=== PATIENT | female | born 1980 | race Caucasian/White ===

== ENCOUNTER 2020-05-17 10:24 | Emergency (ER) | payer MEDICAID, SELFPAY ==
[2020-05-17 10:24] VITALS: BP 144/79; PULSE 77; RESP 18; TEMP 35.7; O2SAT 98; BMI 31.4
--- NOTE | 2020-05-17 10:34 | CT_ITS ---
STUDY: CT BRAIN WITHOUT CONTRAST REASON FOR EXAM: Female, 39 years old. Head injury, hematorrhea RADIATION DOSAGE (If Supplied By Facility): CTDIvol = ( 44.99 ) mGy, DLP = ( 745.49 ) mGycm TECHNIQUE: Transaxial CT imaging of the brain was performed without administration of intravenous contrast material. Individualized dose optimization techniques were used for this CT. COMPARISON: CT head 10/14/2012 FINDINGS: Normal soft tissue structures. Normal calvarium. Normal size ventricles and extra-axial spaces for the patient''s age. Normal white matter tracts of the cerebral hemispheres. Normal basal ganglia and thalami. Normal brainstem. Normal cerebellum. There is no intracranial hemorrhage. There are no findings of an acute ischemic infarction. Normal visualized paranasal sinuses. CT/Brain/Head without Contrast IMPRESSION: Normal unenhanced CT scan of the brain. Electronically Signed: Judie Lee MD at 11:18 EDT Tel , Service support ,
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
[2020-05-17 11:47] VITALS: BP 102/64; PULSE 57; RESP 18; O2SAT 100
== END 2020-05-17 11:52 | disposition home or self-care (01) ==
PROVIDERS: Emergency Provider Emergency Medicine
DX: H72.90 Unspecified perforation of tympanic membrane, unspecified ear (principal); S09.90XA Unspecified injury of head, initial encounter; S50.811A Abrasion of right forearm, initial encounter; Y04.2XXA Assault by strike against or bumped into by another person, initial encounter; Y92.9 Unspecified place or not applicable; Y99.9 Unspecified external cause status; F17.200 Nicotine dependence, unspecified, uncomplicated
CPT/HCPCS: 70450; 99282

== ENCOUNTER 2020-06-12 19:42 | Emergency (ER) | payer MEDICAID, SELFPAY ==
[2020-06-12 19:42] VITALS: BP 101/60; PULSE 61; RESP 16; TEMP 36.6; O2SAT 92; BMI 30.4
--- NOTE | 2020-06-12 19:52 | EKG12_ITS ---
Test Reason : DIZZY Blood Pressure : / mmHG Vent. Rate : 066 BPM Atrial Rate : 066 BPM P-R Int : 094 ms QRS Dur : 092 ms QT Int : 396 ms P-R-T Axes : -18 030 026 degrees QTc Int : 415 ms Sinus rhythm with sinus arrhythmia with short DC Low voltage QRS Borderline ECG Confirmed by REGINA FISCHER, VALERI ([id number]), brands editor KRUNAL DURAN ([id number]) on 06/14/2020 9:13:17 AM Referred By: CL Confirmed By:VALERI TAPIA MD
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
[2020-06-12] MEDS: 0.9% Normal Saline 1,000 ML 1000 ML IV (20:03)
[2020-06-12 20:11] LABS: Basophil# 0.05 X10^3/uL; Basophil% 0.8 % (0-1); Eosinophil# 0.27 X10^3/uL; Eosinophils% 4.1 % (0-5); Hematocrit 41.4 % (37-47); Hemoglobin 13.4 g/dL (12.0-15.0); Lymphocyte % 30.1 % (19-41); Mean Corp Hgb Conc 32.4 g/dL (32-36); Mean Corpuscular Hgb 29.2 pg (27.0-32.0); Mean Corpuscular Volume 90.2 fL (81-99); Mean Platelet Vol. 10.4 fl (6.2-12.0); Monocyte# 0.36 X10^3/uL; Monocyte% 5.4 % (0-10); NRBC Flagged by Analyzer 0 % (0-5); Neutrophil # 3.95 X10^3/uL (2.7-7.7); Neutrophil % 59.4 % (47-70); POSITIVE MORPHOLOGY YES; Platelet Count 213 K/mm3 (150-450); RBC Distribution Width CV 12.7 % (11.6-14.6); RBC Distribution Width SD 42.5 fl (35.1-43.9); Red Blood Count 4.59 M/mm3 (4.2-5.4); White Blood Count 6.6 K/mm3 (4.4-11.0)
[2020-06-12 20:17] LABS: Bacteria 0 SEEN /hpf (None Seen); Color, Urine Yellow (Yellow); Glucose, Dipstick Normal (Normal); Ketone-Dipstick 5 mg/dl (Negative); Leukocyte Esterase-Dipstick 25 /ul (Negative); Mucous, Urine 0 SEEN /hpf (<or=2+); Nitrite-Dipstick Negative (Negative); Occult Blood-Urine Negative /ul (Negative); Protein-Dipstick Negative (Negative); Red Blood Cells-Urine 0 SEEN /hpf (0-5); Squamous Epithelial Cells - UA 0 SEEN /hpf (5-10); Urine Bilirubin Dipstick Negative (Negative); Urine Clarity Clear (Clear); Urine Urobilinogen 1 mg/dl (Normal); Urine pH 6.5 (5.0 - 8.0); White Blood Cells 0 SEEN /hpf (0-5)
[2020-06-12 20:20] LABS: Internal QC Validated? YES +Cl - CLEAR BKGD; Pregnancy, Urine Negative Negative
[2020-06-12 20:20] LABS: Differential Indicated SCAN CRITERIA MET
[2020-06-12 20:33] LABS: ALB/GLOB Ratio 1.1 RATIO (0.9-2.4); AST(SGOT) 20 U/L (15-37); Alanine Aminotransfer ALT/SGPT 35 U/L (13-56); Albumin, Serum 3.3 g/dL (3.2-5.0); Alkaline Phosphatase 66 U/L (45-117); Anion Gap 4 (5-15); BUN 15 mg/dL (7-18); BUN/Creat Ratio 14.7 RATIO (10-20); Calcium,Total 8.4 mg/dL (8.5-10.1); Chloride 110 mmol/L (98-107); Creatinine, Serum 1.02 mg/dL (0.55-1.02); EST Glomerular Filtration Rate 64 mL/min (>60); Est Glom Filt Rate - Afr Amer 77 mL/min (>60); Estimated Creatinine Clearance 69.32 ml/min; Glucose 74 mg/dL (74-106); Potassium 3.6 mmol/L (3.5-5.1); Protein, Total 6.3 g/dL (6.4-8.2); Sodium Level 142 mmol/L (136-145)
[2020-06-12 21:19] VITALS: BP 109/63; PULSE 77; RESP 12; O2SAT 100
== END 2020-06-12 21:21 | disposition home or self-care (01) ==
PROVIDERS: Emergency Provider Emergency Medicine
DX: R42 Dizziness and giddiness (principal); F17.210 Nicotine dependence, cigarettes, uncomplicated; F15.90 Other stimulant use, unspecified, uncomplicated
CPT/HCPCS: 80053; 81001; 81025; 85025; 93005; 96360; 99284; J7030; A4216

== ENCOUNTER 2020-06-25 05:33 | Emergency (ER) | payer MEDICAID, SELFPAY ==
[2020-06-25 05:34] VITALS: BP 126/81; PULSE 102; RESP 6; TEMP 35.7; O2SAT 98; BMI 27.9
[2020-06-25] MEDS: Naloxone 2 MG/2 ML Syringe IV (05:52)
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
[2020-06-25 06:01] LABS: Absolute Neutrophil Count 5.7 X10^3/uL (2.0-7.7); Basophil# 0.08 X10^3/uL; Basophil% 0.8 % (0-1); Lymphocyte % 31.2 % (19-41); Mean Corp Hgb Conc 32.5 g/dL (32-36); Mean Corpuscular Hgb 28.9 pg (27.0-32.0); Mean Corpuscular Volume 88.9 fL (81-99); Monocyte# 0.73 X10^3/uL; Monocyte% 7.3 % (0-10); NRBC Flagged by Analyzer 0 % (0-5); Neutrophil % 57.4 % (47-70); Platelet Count 291 K/mm3 (150-450); RBC Distribution Width CV 12.7 % (11.6-14.6); RBC Distribution Width SD 41.8 fl (35.1-43.9); White Blood Count 9.9 K/mm3 (4.4-11.0)
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
[2020-06-25 07:04] VITALS: BP 119/76; PULSE 106; RESP 20; O2SAT 99
[2020-06-25 07:52] LABS: AST(SGOT) 28 U/L (15-37); Alanine Aminotransfer ALT/SGPT 39 U/L (13-56); Albumin, Serum 3.6 g/dL (3.2-5.0); Alkaline Phosphatase 66 U/L (45-117); Anion Gap 5 (5-15); BUN 23 mg/dL (7-18); BUN/Creat Ratio 26.1 RATIO (10-20); Calcium,Total 8.7 mg/dL (8.5-10.1); Chloride 107 mmol/L (98-107); Creatinine, Serum 0.88 mg/dL (0.55-1.02); EST Glomerular Filtration Rate 76 mL/min (>60); Est Glom Filt Rate - Afr Amer 92 mL/min (>60); Estimated Creatinine Clearance 83.47 ml/min; Globulin 3.6 g/dL (2.2-4.2); Glucose 111 mg/dL (74-106); Potassium 3.8 mmol/L (3.5-5.1); Protein, Total 7.2 g/dL (6.4-8.2); Sodium Level 136 mmol/L (136-145)
[2020-06-25 08:19] VITALS: BP 125/86; PULSE 99; RESP 16; O2SAT 98
== END 2020-06-25 08:19 | disposition home or self-care (01) ==
PROVIDERS: Emergency Provider Emergency Medicine
DX: F11.10 Opioid abuse, uncomplicated (principal); F17.210 Nicotine dependence, cigarettes, uncomplicated
CPT/HCPCS: 36415; 80053; 85025; 96374; 99285; A4216

== ENCOUNTER 2020-07-08 01:09 | Emergency (ER) | payer MEDICAID, SELFPAY ==
[2020-07-08 01:10] VITALS: BP 108/69; PULSE 77; RESP 16; TEMP 36.1; O2SAT 100; BMI 31.4
[2020-07-08 01:13] VITALS: BP 108/69; PULSE 77; RESP 16; TEMP 36.1; O2SAT 100
--- NOTE | 2020-07-08 01:22 | EKG12_ITS ---
Test Reason : EDEMA Blood Pressure : / mmHG Vent. Rate : 065 BPM Atrial Rate : 065 BPM P-R Int : 104 ms QRS Dur : 092 ms QT Int : 390 ms P-R-T Axes : 026 051 023 degrees QTc Int : 405 ms Sinus rhythm with short ME Otherwise normal ECG Confirmed by JUAN CARLOS FISCHER, JULIANE ([id number]), multimedia editor KRUNAL DURAN ([id number]) on 07/10/2020 9:31:28 AM Referred By: GLENNY Confirmed By:JULIANE RANGEL MD
--- NOTE | 2020-07-08 01:22 | RAD_ITS ---
STUDY: X-RAY CHEST REASON FOR EXAM: Female, 39 years old. chest pain TECHNIQUE: Single AP portable view of the chest. COMPARISON: None. FINDINGS: Fullness of markings at the right lung base most likely representing confluence of vessels. Otherwise no lungs are clear and expanded. There is no demonstrated pleural abnormality. Normal size heart. Normal mediastinum and devonte. Normal visualized pulmonary arteries. Normal visualized aortic arch and descending thoracic aorta. Normal visualized thoracic spine. Normal visualized ribs, clavicles, and shoulders. There is no demonstrated abnormality of the visualized soft tissue structures of the upper abdomen. RAD/Chest 1 View (Portable) IMPRESSION: No acute cardiopulmonary disease. Electronically Signed: Mable Li MD at 2:41 EDT , Service support ,
--- NOTE | 2020-07-08 01:22 | CT_ITS ---
STUDY: CTA CHEST REASON FOR EXAM: Female, 39 years old. shortness of breath RADIATION DOSAGE (If Supplied By Facility): CTDIvol = ( 14.15 ) mGy, DLP = ( 366.05 ) mGycm TECHNIQUE: The examination was performed with the intravenous administration of IV 100mL [id number]-370. Post-processing of the angiographic images was performed, with multiplanar reformation and 3D reconstruction. Individualized dose optimization techniques were used for this CT. COMPARISON: None. FINDINGS: Normal enhancement of the main pulmonary artery and right and left pulmonary arteries. Normal enhancement of the bilateral peripheral pulmonary arteries. There is no demonstrated pulmonary embolism. Normal thoracic aorta and visualized great vessels. There is no demonstrated aortic dissection. Normal heart and pericardium. Normal mediastinum. Normal hilar regions. Normal visualized trachea and bronchi. The lungs are well expanded. Mild posterior dependent atelectasis otherwise normal pulmonary parenchyma. Normal pleura. Normal chest wall structures. Normal osseous structures. Normal visualized upper abdomen. CT/CTA Chest W/WO Contrast IMPRESSION: Negative CTA chest examination, without a demonstrated pulmonary embolism or arterial dissection. Mild posterior dependent atelectasis otherwise no acute cardiopulmonary disease. Electronically Signed: Malbe Li MD at 2:43 EDT , Service support ,
--- NOTE | 2020-07-08 01:24 | EDS_ITS ---
HPI History of Present Illness Chief Complaint: Edema Narrative Narrative: 39-year-old female presenting with bilateral lower extremity edema. She states she has no history of this. She states is been worsening over the last couple of days. She has been trying to elevate her legs and she continues to have swelling. She does have some mild erythema on her right anterior leg. She has not had fever, chills, nausea, vomiting. She does admit to being short of breath at times and has to sit down and rest. This is also a new issue. She denies chest pain as an associated symptom but she does admit to lightheadedness. Patient has no history of DVT/PE. She has no cardiac history. Patient states that she does have a history of hep C but has not been treated for this. She said it is not active. [facility] Medical History Substance abuse Home Medications apixaban [Eliquis DVT-PE Treat 30D Start] 5 mg PO BID 30 Days #74 tab 07/08/20 [Rx Last Taken Unknown] Allergy/AdvReac Type Severity Reaction Status Date / Time pseudoephedrine AdvReac Other Verified 07/08/20 01:13 [From Sudafed] Social History Smoking Status: Current every day smoker tobacco type: cigarettes ROS ROS ED Constitutional Constitutional ED: Denies chills, fever(s) or sweats Eyes Eyes: Denies blurry vision or change in vision ENT ENT ED: Denies ear pain, rhinorrhea or sore throat Cardiovascular Cardiovascular: Reports other Details: Lightheadedness. ; Denies chest pain, palpitations or racing heartbeat Respiratory/Chest Respiratory/Chest: Reports dyspnea; Denies cough or sputum Gastrointestinal Gastrointestinal: Denies abdominal pain, constipation, diarrhea or vomiting Genitourinary Genitourinary ED: Denies dysuria, hematuria or urinary frequency Musculoskeletal Musculoskeletal: Denies arthralgias, myalgias or neck pain Integumentary Reports other Details: Bilateral lower extremity edema ; Denies abscess, Abrasions or rash Neurologic Neurologic: Denies headache(s), paresthesias or weakness Psychiatric Psychiatric: Denies anxiety, depression, suicidal ideation or suicidal thoughts Endocrine Endocrinology: Denies polydipsia or polyuria EXAM Physical Exam Const Vital Signs: 07/08/20 01:10 07/08/20 01:13 07/08/20 02:23 Temperature 97 F L 97 F L Temperature Source Temporal Temporal Pulse Rate 77 77 Respiratory Rate 16 16 Blood Pressure 108/69 108/69 Blood Pressure Mean 82 82 Pulse Ox 100 100 96 Oxygen Delivery Method Room Air 07/08/20 03:16 07/08/20 04:04 Temperature 97 F L Temperature Source Temporal Pulse Rate 72 81 Respiratory Rate 16 18 Blood Pressure 101/69 100/82 H Blood Pressure Mean 79 88 Pulse Ox 99 99 Oxygen Delivery Method Room Air Positive well nourished General Appearance ED: NAD; Negative for pallor HEENT Reports normocephalic, head/scalp atraumatic and moist mucous membranes Negative for trauma Eyes PERRL and EOMs intact bilaterally Chest Wall inspection of chest normal and palpation of chest normal Resp normal respiratory effort and clear to auscultation bilaterally Auscultation: Negative for rales, rhonchi or wheezes Cardio regular rate and regular rhythm GI normal to inspection, nondistended, normoactive bowel sounds and non-distended Auscultation: normoactive bowel sounds Palpation: soft Narrative: Deferred Back/Spine no CVA tenderness General Back: Negative for CVA tenderness Cervical Spine: Negative for cervical spine tenderness Extremity General Extremety ED: Yes edema and tenderness General Extremity: edema Neuro oriented x3 and CN's II-XII intact bilaterally Sensorium / Orientation: alert Motor Exam: strength 5/5 throughout Psych mental status grossly normal Attitude: No agitated Skin no rashes or lesions noted and no wounds General Skin Exam: Negative for jaundice or pallor MDM MDM MDM Narrative Medical decision making narrative: Patient presenting with leg swelling, shortness of breath, lightheadedness. Patient had EKG performed which showed a sinus rhythm at 65 bpm without signs of ischemic change as interpreted by myself. Chest x-ray is interpreted by myself shows no acute cardiopulmonary process. Radiology does agree. Patient's lab work-up was unremarkable. BNP is negative. Troponin is negative. She did have a CTA of the chest performed which shows a right lower lobe PE. Given this patient will be started on Eliquis. First dose was given in the ED. Given that she has bilateral leg swelling she wishes to have ultrasounds performed of her legs. This was ordered for her prior to discharge. She will follow-up outpatient for this. Patient given return precautions. She is stable for discharge at this time. Impression: 1. Right lower lobe PE 2. Dyspnea 3. Bilateral leg swelling Lab Data Attestation: I reviewed the patient's lab results. Labs: Laboratory Results - last 24 hr 07/08/20 07/08/20 07/08/20 01:45 01:45 01:45 WBC 6.4 RBC 4.24 Hgb 12.2 Hct 38.8 MCV 91.5 MCH 28.8 MCHC 31.4 L RDW Std Deviation 42.8 RDW Coeff of Uyen 12.8 Plt Count 214 MPV 9.9 Immature Gran % (Auto) 0.300 Neut % (Auto) 63.5 Lymph % (Auto) 25.3 [place] % (Auto) 7.6 Eos % (Auto) 2.8 Baso % (Auto) 0.5 Absolute Neuts (auto) 4.1 Absolute Lymphs (auto) 1.63 Nucleated RBC % 0 Sodium 141 Potassium 4.0 Chloride 108 H Carbon Dioxide 30.0 Anion Gap 3 L BUN 16 Creatinine 0.79 Estim Creat Clear Calc 89.50 Est GFR (MDRD) Af Amer 104 Est GFR (MDRD) Non-Af 86 BUN/Creatinine Ratio 20.3 H Glucose 84 Calcium 8.5 Total Bilirubin 0.30 Direct Bilirubin 0.09 AST 34 ALT 44 Alkaline Phosphatase 83 Troponin I < 0.015 B-Natriuretic Peptide 82.9 Total Protein 6.3 L Albumin 3.1 L Globulin 3.2 Radiography Diagnostic Testing: Radiology Impression Chest CTA 07/08/20 01:22 IMPRESSION: Negative CTA chest examination, without a demonstrated pulmonary embolism or arterial dissection. Mild posterior dependent atelectasis otherwise no acute cardiopulmonary disease. Electronically Signed: Mable Li MD at 2:43 EDT , Service support , ADDENDUM: 07/08/20 0347 ADDENDUM: 07/08/20 0353 Chest X-Ray 07/08/20 01:22 IMPRESSION: No acute cardiopulmonary disease. Electronically Signed: Mable Li MD at 2:41 EDT , Service support , Discharge Plan Triage Chief Complaint: Edema ED Provider: Wang Casey Dx/Rx/DC Orders Instructions: Pulmonary Embolism Prescriptions: New Eliquis DVT-PE Treat 30D Start 5 mg (74 tabs) tablets,dose pack 5 mg PO BID 30 Days Qty: 74 RF: 0 Primary Care Provider: Care Physician,No Primary Referrals: Savannah Mathews MD [STAFF PHYSICIAN] - As soon as possible Care Physician,No Primary [Primary Care Provider] - Disposition Disposition: Home, self care
[2020-07-08 01:54] LABS: Absolute Lymphocyte Count 1.63 X10^3/uL (0.83-4.51); Absolute Neutrophil Count 4.1 X10^3/uL (2.0-7.7); Basophil# 0.03 X10^3/uL; Basophil% 0.5 % (0-1); Eosinophil# 0.18 X10^3/uL; Eosinophils% 2.8 % (0-5); Hematocrit 38.8 % (37-47); Hemoglobin 12.2 g/dL (12.0-15.0); Lymphocyte # 1.63 X10^3/ul (0.83-4.51); Lymphocyte % 25.3 % (19-41); Mean Corp Hgb Conc 31.4 g/dL (32-36); Mean Corpuscular Hgb 28.8 pg (27.0-32.0); Mean Corpuscular Volume 91.5 fL (81-99); Mean Platelet Vol. 9.9 fl (6.2-12.0); Monocyte# 0.49 X10^3/uL; Monocyte% 7.6 % (0-10); NRBC Flagged by Analyzer 0 % (0-5); Neutrophil # 4.09 X10^3/uL (2.7-7.7); Neutrophil % 63.5 % (47-70); Platelet Count 214 K/mm3 (150-450); RBC Distribution Width CV 12.8 % (11.6-14.6); RBC Distribution Width SD 42.8 fl (35.1-43.9); Red Blood Count 4.24 M/mm3 (4.2-5.4); White Blood Count 6.4 K/mm3 (4.4-11.0)
[2020-07-08 02:11] LABS: AST(SGOT) 34 U/L (15-37); Alanine Aminotransfer ALT/SGPT 44 U/L (13-56); Albumin, Serum 3.1 g/dL (3.2-5.0); Alkaline Phosphatase 83 U/L (45-117); Anion Gap 3 (5-15); BUN 16 mg/dL (7-18); BUN/Creat Ratio 20.3 RATIO (10-20); Bilirubin, Direct 0.09 mg/dL (0.00-0.30); Calcium,Total 8.5 mg/dL (8.5-10.1); Chloride 108 mmol/L (98-107); Creatinine, Serum 0.79 mg/dL (0.55-1.02); EST Glomerular Filtration Rate 86 mL/min (>60); Est Glom Filt Rate - Afr Amer 104 mL/min (>60); Globulin 3.2 g/dL (2.2-4.2); Glucose 84 mg/dL (74-106); Protein, Total 6.3 g/dL (6.4-8.2); Sodium Level 141 mmol/L (136-145)
[2020-07-08 02:14] LABS: BNP,B-Type NATRIURETIC PEPTIDE 82.9 pg/mL (0-100)
[2020-07-08 02:23] VITALS: O2SAT 96
[2020-07-08 03:16] VITALS: BP 101/69; PULSE 72; RESP 16; O2SAT 99
[2020-07-08] MEDS: APIXABAN 5 MG TABLET 10 MG PO (04:03)
[2020-07-08 04:04] VITALS: BP 100/82; PULSE 81; RESP 18; TEMP 36.1; O2SAT 99
[2020-07-08 04:12] VITALS: BP 100/82; PULSE 81; RESP 16; O2SAT 99
== END 2020-07-08 04:12 | disposition home or self-care (01) ==
PROVIDERS: Emergency Provider Student in an Organized Health Care Education/Training Program
DX: I26.99 Other pulmonary embolism without acute cor pulmonale (principal); R60.9 Edema, unspecified; M79.89 Other specified soft tissue disorders; R06.00 Dyspnea, unspecified; F17.210 Nicotine dependence, cigarettes, uncomplicated; Z79.01 Long term (current) use of anticoagulants
CPT/HCPCS: 71045; 71275; 80048; 80076; 83880; 84484; 85025; 93005; 99285; Q9967

== ENCOUNTER → 2020-07-12 11:06 | Outpatient (CLI) | payer MEDICAID, SELFPAY ==
[2020-07-08 01:10] VITALS: BMI 31.4
[2020-07-11 07:59] VITALS: BMI 31.4
--- NOTE | 2020-07-12 11:08 | VDLE_ITS ---
Reason For Study: Swelling RIGHT LEFT GSV is normal. GSV is normal. CFV is compressible, spontaneous, phasic, CFV is compressible, spontaneous, phasic, competent and demonstrates normal competent, and demonstrates normal augmentation. augmentation. FV is compressible, spontaneous, phasic, FV is compressible, spontaneous, phasic, competent and demonstrates normal competent and demonstrates normal augmentation. augmentation. POP V is compressible, spontaneous, phasic, POP V is compressible, spontaneous, phasic, competent and demonstrates normal competent and demonstrates normal augmentation. augmentation. T/P Trunk is compressible. T/P Trunk is compressible. PTV is compressible. PTV is compressible. RT PerV is compressible. LT PerV is compressible. Procedure This is a venous duplex using B-mode, color flow and spectral Doppler. Exam performed in department. VL/Venous Duplex US - [place] Extrem Interpretation Summary Deep veins of the lower extremities are bilaterally patent and compressible seg mentally. There is no evidence of deep vein thrombosis on either side. Valvular competence appears in tact within the proximal deep venous systems bilaterally. The great saphenous veins appear bila terally patent and compressible segmentally. Ordering Physician: Wang Casey Performed By: Lola Martin RVT
== END ==
PROVIDERS: Referring Provider Student in an Organized Health Care Education/Training Program; Visit Provider Student in an Organized Health Care Education/Training Program
DX: M79.89 Other specified soft tissue disorders (principal)
CPT/HCPCS: 93970

== ENCOUNTER → 2020-07-30 15:23 | Outpatient (CLI) | payer MEDICAID, SELFPAY ==
[2020-07-18 08:45] VITALS: BMI 42.5
[2020-07-26 14:51] VITALS: BMI 29.3
--- NOTE | 2020-07-30 15:25 | CT_ITS ---
INDICATION: Bilateral Lower extremity edema. Thrombosis EXAMINATION: CT Abdomen And Pelvis W/ Contrast Injection TECHNIQUE: Helically acquired images were obtained of the abdomen and pelvis after IV contrast. A radiation dose optimization technique was used for this scan. IV Contrast dosage and agent: IV 100mL Isovue-300 Oral contrast: None. COMPARISON: 11/29/2012. FINDINGS: Visualized lung bases: Unremarkable Liver: Diffusely hypodense consistent with fatty liver. Gallbladder: Unremarkable Spleen: Unremarkable Pancreas: Unremarkable Adrenal Glands: Unremarkable Kidneys: Unremarkable Vasculature: Unremarkable GI Tract: Unremarkable Lymphadenopathy: Prominent bilateral inguinal lymph nodes. Peritoneum: No ascites. Bladder: Unremarkable Reproductive organs: Unremarkable Bones/Soft tissues: No suspicious osseous or soft tissue lesions CT/Abdomen/Pelvis WITH Contrast IMPRESSION: No acute abnormalities in the abdomen or pelvis. Fatty liver. Electronically Signed: Julien Che MD at 20:44 EDT Tel , Service support ,
== END ==
PROVIDERS: PCP Internal Medicine; Referring Provider Internal Medicine; Visit Provider Internal Medicine
DX: I82.90 Acute embolism and thrombosis of unspecified vein (principal); R60.0 Localized edema
CPT/HCPCS: 74177; Q9967

== ENCOUNTER 2020-08-02 17:38 | Emergency (ER) | payer MEDICAID, SELFPAY ==
[2020-07-26 14:51] VITALS: BMI 29.3
[2020-08-02 17:39] VITALS: BP 122/78; PULSE 72; PULSE 83; RESP 16; TEMP 36.2; O2SAT 94; O2SAT 96; BMI 29.7
--- NOTE | 2020-08-02 17:58 | EX.ED.DYSGE1 ---
HPI History of Present Illness Chief Complaint: Complaint Informant: patient Onset/Context/Timing Onset: Days Context: Gradual Onset Timing: Continuous Quality: Tingling, blood, clots Location: Lower abdomen Worsened by: Urination Relieved by: Nothing Narrative Narrative: Patient presents with hematuria and urinary frequency that has been getting worse over the past couple days. Patient states she has some tingling in her lower abdomen. Patient states she is urinating some blood and clots. Patient states she is on Eliquis for pulmonary embolism. Patient states nothing makes it better and nothing makes it worse. Patient denies any fevers or chills. Patient denies any neck or back pain. Patient denies any nausea or vomiting. [facility] Medical History Alcohol abuse affecting Back problem Bilateral lower extremity edema Drug abuse Hearing problem Hepatitis C Pulmonary embolism Substance abuse Thrombosis Vision problem Home Medications apixaban [Eliquis DVT-PE Treat 30D Start] 5 mg PO BID 30 Days #74 tab 07/08/20 [Rx Last Taken Unknown] cephalexin 500 mg PO Q6 #20 capsule 08/02/20 [Rx Last Taken Unknown] Allergy/AdvReac Type Severity Reaction Status Date / Time pseudoephedrine Allergy Severe Other Verified 07/26/20 14:56 [From Sudafed] Family History (Updated 07/18/20 @ 08:55 by Erendira Islas) Other Hypertension Surgical History History of S/P removal of left ovary Social History Smoking Status: Current every day smoker tobacco type: cigarettes second hand exposure: Yes alcohol intake: former substance use type: former substance user, opiates, methamphetamine and other details: previous caffeine: Yes what type of physical activity do you participate in: walking frequency: 3-4 times per week marvin/rastafarian: Catholic seatbelt use: sometimes do you feel safe at home: Yes ROS ROS ED Constitutional Constitutional ED: Denies chills or fever(s) Eyes Eyes: Denies blurry vision or change in vision ENT ENT ED: Reports rhinorrhea; Denies sore throat Cardiovascular Cardiovascular: Denies chest pain or palpitations Respiratory/Chest Respiratory/Chest: Denies cough or dyspnea Gastrointestinal Gastrointestinal: Reports abdominal pain; Denies nausea or vomiting Genitourinary Genitourinary ED: Denies dysuria or hematuria Musculoskeletal Musculoskeletal: Denies back pain or neck pain Integumentary Reports rash; Denies abscess Neurologic Neurologic: Reports paresthesias RUE and LUE; Denies headache(s) or weakness Allergic/Immunologic Allergic/Immunologic ED: Denies mouth swelling or urticaria EXAM Physical Exam Const Vital Signs: 08/02/20 17:39 Temperature 97.2 F L Temperature Source Temporal Pulse Rate 83 Respiratory Rate 16 Blood Pressure 122/78 H Blood Pressure Mean 92 Pulse Ox 94 Oxygen Delivery Method Room Air Positive well nourished and well developed General Appearance ED: well developed HEENT Reports moist mucous membranes Neck supple and no JVD Resp normal respiratory effort and clear to auscultation bilaterally Cardio regular rate, regular rhythm and no murmurs GI normal to inspection, nondistended, normoactive bowel sounds Palpation: soft and tender suprapubic; Negative for guarding or rebound tenderness present Extremity normal to inspection General Extremety ED: Negative for edema or tenderness General Extremity: Negative for edema Neuro oriented x3, CN's II-XII intact bilaterally and no sensory deficits noted Sensorium / Orientation: alert Motor Exam: strength 5/5 throughout Psych mental status grossly normal Skin no rashes or lesions noted MDM MDM MDM Narrative Medical decision making narrative: CBC shows a slight leukocytosis of 11.2. Comprehensive metabolic profile was within normal limits. Urinalysis shows leukocyte esterase of 500 with positive nitrites and greater than 100 white blood cells. There is also occult blood of 250 with 50-100 red blood cells. There is 2+ bacteria. Patient was given a dose of Rocephin here. Patient was given a prescription for Keflex. Patient was instructed to follow-up with her primary care physician in 5 to 7 days. Patient understood and was agreeable with the plan. All questions were answered. Lab Data Attestation: I reviewed the patient's lab results. Labs: Laboratory Results - last 24 hr 08/02/20 08/02/20 08/02/20 17:50 18:10 18:10 WBC 11.2 H RBC 4.32 Hgb 12.5 Hct 38.5 MCV 89.1 MCH 28.9 MCHC 32.5 RDW Std Deviation 41.9 RDW Coeff of Uyen 12.7 Plt Count 259 MPV 10.4 Immature Gran % (Auto) 0.400 Neut % (Auto) 78.4 H Lymph % (Auto) 12.1 L [place] % (Auto) 7.5 Eos % (Auto) 1.2 Baso % (Auto) 0.4 Absolute Neuts (auto) 8.8 H Absolute Lymphs (auto) 1.35 Nucleated RBC % 0 Sodium 140 Potassium 3.7 Chloride 106 Carbon Dioxide 30.0 Anion Gap 4 L BUN 13 Creatinine 0.77 Estim Creat Clear Calc 91.83 Est GFR (MDRD) Af Amer 106 Est GFR (MDRD) Non-Af 88 BUN/Creatinine Ratio 16.8 Glucose 86 Calcium 9.1 Total Bilirubin 0.60 AST 41 H ALT 33 Alkaline Phosphatase 79 Total Protein 7.2 Albumin 3.6 Globulin 3.6 Albumin/Globulin Ratio 1.0 Urine Color Yellow Urine Clarity Cloudy Urine pH 7.0 Ur Specific [place] 1.015 Urine Protein 500 H Urine Glucose (UA) Normal Urine Ketones 5 H Urine Occult Blood 250 H Urine Nitrite Positive H Urine Bilirubin Negative Urine Urobilinogen 4 H Ur Leukocyte Esterase 500 H Urine RBC 50-100 SEEN Urine WBC >100 SEEN Ur Squamous Epith Cells 5-10 SEEN Amorphous Sediment 1+ PHOS Urine Bacteria 2+ Urine Mucus 0 SEEN Discharge Plan Triage Chief Complaint: Complaint ED Provider: Warren Valdez Dx/Rx/DC Orders Clinical Impression: Urinary tract infection Instructions: ED Bladder Infection, Female (Adult) Prescriptions: New cephalexin [cephalexin] 500 MG capsule 500 mg PO Q6 Qty: 20 RF: 0 No Action Eliquis DVT-PE Treat 30D Start 5 mg (74 tabs) tablets,dose pack 5 mg PO BID 30 Days Qty: 74 RF: 0 Primary Care Provider: Gregorio Mathews Referrals: Gregorio Mathews MD [Primary Care Provider] - 3-5 Days Disposition Disposition: Home, self care
[2020-08-02 18:02] LABS: Mucous, Urine 0 SEEN /hpf (<or=2+)
[2020-08-02 18:05] LABS: Color, Urine Yellow (Yellow); Glucose, Dipstick Normal (Normal); Ketone-Dipstick 5 mg/dl (Negative); Leukocyte Esterase-Dipstick 500 /ul (Negative); Nitrite-Dipstick Positive (Negative); Occult Blood-Urine 250 /ul (Negative); Protein-Dipstick 500 mg/dl (Negative); Specific Gravity, Urine 1.015 (1.002-1.030); Urine Bilirubin Dipstick Negative (Negative); Urine Clarity Cloudy (Clear); Urine Urobilinogen 4 mg/dl (Normal)
[2020-08-02 18:13] LABS: White Blood Cells >100 SEEN /hpf (0-5)
[2020-08-02 18:14] LABS: Amorphous Sediment 1+ PHOS; Bacteria 2+ /hpf (None Seen); Red Blood Cells-Urine 50-100 SEEN /hpf (0-5); Squamous Epithelial Cells - UA 5-10 SEEN /hpf (5-10)
[2020-08-02 18:31] LABS: Absolute Lymphocyte Count 1.35 X10^3/uL (0.83-4.51); Absolute Neutrophil Count 8.8 X10^3/uL (2.0-7.7); Basophil# 0.04 X10^3/uL; Basophil% 0.4 % (0-1); Eosinophil# 0.13 X10^3/uL; Eosinophils% 1.2 % (0-5); Hematocrit 38.5 % (37-47); Hemoglobin 12.5 g/dL (12.0-15.0); Lymphocyte # 1.35 X10^3/ul (0.83-4.51); Lymphocyte % 12.1 % (19-41); Mean Corp Hgb Conc 32.5 g/dL (32-36); Mean Corpuscular Hgb 28.9 pg (27.0-32.0); Mean Corpuscular Volume 89.1 fL (81-99); Mean Platelet Vol. 10.4 fl (6.2-12.0); Monocyte# 0.84 X10^3/uL; Monocyte% 7.5 % (0-10); NRBC Flagged by Analyzer 0 % (0-5); Neutrophil # 8.79 X10^3/uL (2.7-7.7); Neutrophil % 78.4 % (47-70); Platelet Count 259 K/mm3 (150-450); RBC Distribution Width CV 12.7 % (11.6-14.6); RBC Distribution Width SD 41.9 fl (35.1-43.9); Red Blood Count 4.32 M/mm3 (4.2-5.4); White Blood Count 11.2 K/mm3 (4.4-11.0)
[2020-08-02 18:58] LABS: AST(SGOT) 41 U/L (15-37); Alanine Aminotransfer ALT/SGPT 33 U/L (13-56); Albumin, Serum 3.6 g/dL (3.2-5.0); Alkaline Phosphatase 79 U/L (45-117); Anion Gap 4 (5-15); BUN 13 mg/dL (7-18); BUN/Creat Ratio 16.8 RATIO (10-20); Calcium,Total 9.1 mg/dL (8.5-10.1); Chloride 106 mmol/L (98-107); Creatinine, Serum 0.77 mg/dL (0.55-1.02); EST Glomerular Filtration Rate 88 mL/min (>60); Est Glom Filt Rate - Afr Amer 106 mL/min (>60); Estimated Creatinine Clearance 91.83 ml/min; Globulin 3.6 g/dL (2.2-4.2); Glucose 86 mg/dL (74-106); Potassium 3.7 mmol/L (3.5-5.1); Protein, Total 7.2 g/dL (6.4-8.2); Sodium Level 140 mmol/L (136-145)
[2020-08-02] MEDS: Ceftriaxone 1 GM/50 ML BAG IV (19:23)
[2020-08-02 20:00] VITALS: RESP 14
== END 2020-08-02 20:02 | disposition home or self-care (01) ==
PROVIDERS: Emergency Provider Emergency Medicine; PCP Internal Medicine
DX: N39.0 Urinary tract infection, site not specified (principal); F17.210 Nicotine dependence, cigarettes, uncomplicated; Z79.01 Long term (current) use of anticoagulants
CPT/HCPCS: 80053; 81001; 85025; 96365; 99284; J7050

== ENCOUNTER 2020-12-21 02:51 | Observation (INO) | payer MEDICAID, SELFPAY ==
[2020-12-21] VITALS (9 sets, daily range): BP systolic 102–130; BP diastolic 52–83; PULSE 60–88; RESP 16; TEMP 36.1–36.7; O2SAT 95–100; BMI 31.4; BMI 31.3
--- NOTE | 2020-12-21 03:29 | EDS_ITS ---
HPI History of Present Illness Chief Complaint: Substance Abuse Informant: patient Onset/Context/Timing Onset: Today Context: Gradual Onset Timing: Continuous Worsened by: Nothing Relieved by: Nothing Associated Symptoms Associated Symptoms: Positive for no; Negative for vomiting*, diarrhea*, fever*, rash*, seizure, tremor, palpatations, change in mental status, suicidal ideation and homicidal ideation Narrative Narrative: Patient presents requesting detox from heroin. Patient states that she normally snorts heroin. Patient states she uses approximately half a gram per day. Patient states she also has a history of using methamphetamines but has not used any in the last 4 days. Patient also complains of an abscess in her right axilla. Patient also admits to some swelling of her lower extremities. Patient denies any shortness of breath. Patient admits to subjective fever. Patient denies any nausea or vomiting. Patient denies any seizures or palpitations. Patient denies any suicidal or homicidal ideation. [facility] Medical History Alcohol abuse affecting Back problem Bilateral lower extremity edema Drug abuse Hearing problem Hepatitis C Pulmonary embolism Substance abuse Thrombosis Vision problem Home Medications NK 12/21/20 [History Last Taken Unknown] Allergy/AdvReac Type Severity Reaction Status Date / Time pseudoephedrine Allergy Severe Shortness Verified 12/21/20 02:58 [From Cookie] of breath Family History (Updated 07/18/20 @ 08:55 by Erendira Islas) Other Hypertension Surgical History History of S/P removal of left ovary Social History Smoking Status: Current every day smoker tobacco type: cigarettes second hand exposure: Yes alcohol intake: former substance use type: former substance user, opiates, methamphetamine and other details: previous caffeine: Yes what type of physical activity do you participate in: walking frequency: 3-4 times per week marvin/gnosticist: Rastafarian seatbelt use: sometimes do you feel safe at home: Yes ROS ROS ED Constitutional Constitutional ED: Reports fever(s) and subjective; Denies chills Eyes Eyes: Denies blurry vision or change in vision ENT ENT ED: Denies rhinorrhea or sore throat Cardiovascular Cardiovascular: Denies chest pain or palpitations Respiratory/Chest Respiratory/Chest: Reports dyspnea; Denies cough Gastrointestinal Gastrointestinal: Denies nausea or vomiting Genitourinary Genitourinary ED: Denies dysuria or hematuria Musculoskeletal Musculoskeletal: Reports myalgias; Denies neck pain Integumentary Reports abscess; Denies rash Neurologic Neurologic: Denies headache(s) or weakness Allergic/Immunologic Allergic/Immunologic ED: Denies mouth swelling or urticaria EXAM Physical Exam Const Vital Signs: 12/21/20 02:52 12/21/20 02:57 12/21/20 04:21 Temperature 96.9 F L 96.9 F L 96.9 F L Temperature Source Temporal Temporal Temporal Pulse Rate 72 72 72 Respiratory Rate 16 16 16 Blood Pressure 127/83 H 127/83 H 127/83 H Blood Pressure Mean 97 97 97 Pulse Ox 99 99 99 Oxygen Delivery Method Room Air Room Air Room Air Positive well nourished and well developed General Appearance ED: well developed HEENT Reports moist mucous membranes Neck supple and no JVD Resp normal respiratory effort and clear to auscultation bilaterally Cardio regular rate, regular rhythm and no murmurs GI normal to inspection, nondistended, normoactive bowel sounds and non-tender Palpation: soft Extremity normal to inspection General Extremety ED: Yes edema; Negative for tenderness General Extremity: edema Neuro oriented x3, CN's II-XII intact bilaterally and no sensory deficits noted Sensorium / Orientation: alert Motor Exam: strength 5/5 throughout Psych mental status grossly normal Skin no rashes or lesions noted Skin Narrative: There is a tender fluctuant abscess in the right axilla. There is no active discharge or drainage. There is some erythema over this. There is no induration. MDM MDM MDM Narrative Medical decision making narrative: The area was cleaned with chlorhexidine prep. The area was anesthetized with 1% plain lidocaine locally. A small cruciate incision was made using an 11 blade scalpel. A large amount of purulent drainage was expressed. The wound was left open. Bacitracin dressing was applied. Patient tolerated the procedure well. Patient was given a dose of clindamycin. Patient was also given an injection of Toradol. CBC was within normal limits. Urinalysis does not show any evidence of urinary tract infection. Urine tox screen was positive for methamphetamines. Serum alcohol level was normal. Comprehensive metabolic profile was normal. Serum was negative. Case was discussed with the hospitalist. He will admit the patient to his service. Patient understood and was agreeable with the plan. All questions were answered. Lab Data Attestation: I reviewed the patient's lab results. Labs: Laboratory Results - last 24 hr 12/21/20 12/21/20 12/21/20 03:43 03:43 04:05 WBC 9.1 RBC 4.32 Hgb 11.7 L Hct 36.9 L MCV 85.4 MCH 27.1 MCHC 31.7 L RDW Std Deviation 44.3 H RDW Coeff of Uyen 14.1 Plt Count 214 MPV 10.1 Immature Gran % (Auto) 0.200 Neut % (Auto) 65.0 Lymph % (Auto) 23.2 [place] % (Auto) 6.5 Eos % (Auto) 4.7 Baso % (Auto) 0.4 Absolute Neuts (auto) 5.9 Absolute Lymphs (auto) 2.12 Nucleated RBC % 0 Sodium Potassium Chloride Carbon Dioxide Anion Gap BUN Creatinine Estim Creat Clear Calc Est GFR (MDRD) Af Amer Est GFR (MDRD) Non-Af BUN/Creatinine Ratio Glucose Calcium Total Bilirubin AST ALT Alkaline Phosphatase Total Protein Albumin Globulin Albumin/Globulin Ratio Serum , Qual Urine Color Yellow Urine Clarity Clear Urine pH 6.0 Ur Specific [place] 1.020 Urine Protein 15 H Urine Glucose (UA) Normal Urine Ketones Negative Urine Occult Blood Negative Urine Nitrite Negative Urine Bilirubin Negative Urine Urobilinogen 1 H Ur Leukocyte Esterase Negative Urine RBC 0-5 SEEN Urine WBC 0 SEEN Ur Squamous Epith Cells 0-5 SEEN Urine Bacteria 1+ Urine Mucus 0 SEEN Urine Opiates Screen NEGATIVE Urine Methadone Screen NEGATIVE Ur Barbiturates Screen NEGATIVE Ur Phencyclidine Scrn NEGATIVE Ur Amphetamines Screen NEGATIVE U Methamphetamin-MDMA POSITIVE H U Benzodiazepines Scrn NEGATIVE Urine Cocaine Screen NEGATIVE U Cannabinoids Screen NEGATIVE Ur Drug Screen Comment Ethyl Alcohol 12/21/20 12/21/20 12/21/20 04:05 04:05 04:05 WBC RBC Hgb Hct MCV MCH MCHC RDW Std Deviation RDW Coeff of Uyen Plt Count MPV Immature Gran % (Auto) Neut % (Auto) Lymph % (Auto) [place] % (Auto) Eos % (Auto) Baso % (Auto) Absolute Neuts (auto) Absolute Lymphs (auto) Nucleated RBC % Sodium 138 Potassium 3.8 Chloride 103 Carbon Dioxide 32.0 Anion Gap 3 L BUN 16 Creatinine 0.80 Estim Creat Clear Calc 90.90 Est GFR (MDRD) Af Amer 103 Est GFR (MDRD) Non-Af 85 BUN/Creatinine Ratio 20.1 H Glucose 96 Calcium 8.7 Total Bilirubin 0.20 AST 27 ALT 32 Alkaline Phosphatase 119 H Total Protein 7.2 Albumin 3.1 L Globulin 4.1 Albumin/Globulin Ratio 0.8 L Serum , Qual NEGATIVE Urine Color Urine Clarity Urine pH Ur Specific [place] Urine Protein Urine Glucose (UA) Urine Ketones Urine Occult Blood Urine Nitrite Urine Bilirubin Urine Urobilinogen Ur Leukocyte Esterase Urine RBC Urine WBC Ur Squamous Epith Cells Urine Bacteria Urine Mucus Urine Opiates Screen Urine Methadone Screen Ur Barbiturates Screen Ur Phencyclidine Scrn Ur Amphetamines Screen U Methamphetamin-MDMA U Benzodiazepines Scrn Urine Cocaine Screen U Cannabinoids Screen Ur Drug Screen Comment Ethyl Alcohol < 3.0 Treatment and Re-Evaluation Vital Sign Attestation:: Vital signs were reviewed prior to admission. They are stable. Discharge Plan Dx/Rx/DC Orders Clinical Impression: Opiate withdrawal, Abscess of right axilla Disposition Disposition: Acute Care Hospital [facility]
[2020-12-21 03:49] LABS: Color, Urine Yellow (Yellow); Glucose, Dipstick Normal (Normal); Ketone-Dipstick Negative (Negative); Leukocyte Esterase-Dipstick Negative /ul (Negative); Mucous, Urine 0 SEEN /hpf (<or=2+); Nitrite-Dipstick Negative (Negative); Occult Blood-Urine Negative /ul (Negative); Protein-Dipstick 15 mg/dl (Negative); Urine Bilirubin Dipstick Negative (Negative); Urine Clarity Clear (Clear); Urine Urobilinogen 1 mg/dl (Normal); White Blood Cells 0 SEEN /hpf (0-5)
[2020-12-21 04:00] LABS: Bacteria 1+ /hpf (None Seen); Red Blood Cells-Urine 0-5 SEEN /hpf (0-5); Squamous Epithelial Cells - UA 0-5 SEEN /hpf (5-10)
[2020-12-21 04:09] LABS: Absolute Lymphocyte Count 2.12 X10^3/uL (0.83-4.51); Absolute Neutrophil Count 5.9 X10^3/uL (2.0-7.7); Basophil# 0.04 X10^3/uL; Basophil% 0.4 % (0-1); Eosinophil# 0.43 X10^3/uL; Eosinophils% 4.7 % (0-5); Hematocrit 36.9 % (37-47); Hemoglobin 11.7 g/dL (12.0-15.0); Lymphocyte # 2.12 X10^3/ul (0.83-4.51); Lymphocyte % 23.2 % (19-41); Mean Corp Hgb Conc 31.7 g/dL (32-36); Mean Corpuscular Hgb 27.1 pg (27.0-32.0); Mean Corpuscular Volume 85.4 fL (81-99); Mean Platelet Vol. 10.1 fl (6.2-12.0); Monocyte# 0.59 X10^3/uL; Monocyte% 6.5 % (0-10); NRBC Flagged by Analyzer 0 % (0-5); Neutrophil # 5.94 X10^3/uL (2.7-7.7); Platelet Count 214 K/mm3 (150-450); RBC Distribution Width CV 14.1 % (11.6-14.6); RBC Distribution Width SD 44.3 fl (35.1-43.9); Red Blood Count 4.32 M/mm3 (4.2-5.4); White Blood Count 9.1 K/mm3 (4.4-11.0)
[2020-12-21 04:15] LABS: Amphetamine Urine VISTA NEGATIVE (<1000 ng/mL); Barbiturate Urine VISTA NEGATIVE (< 200 ng/mL); Benzodiazepine Urine VISTA NEGATIVE (< 200 ng/mL); Cocaine Urine VISTA NEGATIVE (< 300 ng/mL); Ecstacy Urine VISTA POSITIVE (< 500 ng/mL); Methadone Urine VISTA NEGATIVE (< 300 ng/mL); PCP Urine VISTA NEGATIVE (< 25 ng/mL); THC Urine VISTA NEGATIVE (< 50 ng/mL); Vista UDS pH Range 6
[2020-12-21 04:20] LABS: Internal QC Validated? YES +Cl - CLEAR BKGD; Pregnancy, Serum, hCG Quali. NEGATIVE Negative
[2020-12-21] MEDS: Clindamycin HCl 150 MG Capsule 300 MG PO (04:22)
[2020-12-21 04:23] LABS: Alcohol, Blood (Medical)-Serum < 3.0 mg/dL
[2020-12-21 04:27] LABS: ALB/GLOB Ratio 0.8 RATIO (0.9-2.4); AST(SGOT) 27 U/L (15-37); Alanine Aminotransfer ALT/SGPT 32 U/L (13-56); Albumin, Serum 3.1 g/dL (3.2-5.0); Alkaline Phosphatase 119 U/L (45-117); Anion Gap 3 (5-15); BUN 16 mg/dL (7-18); BUN/Creat Ratio 20.1 RATIO (10-20); Calcium,Total 8.7 mg/dL (8.5-10.1); Chloride 103 mmol/L (98-107); EST Glomerular Filtration Rate 85 mL/min (>60); Est Glom Filt Rate - Afr Amer 103 mL/min (>60); Globulin 4.1 g/dL (2.2-4.2); Glucose 96 mg/dL (74-106); Potassium 3.8 mmol/L (3.5-5.1); Protein, Total 7.2 g/dL (6.4-8.2); Sodium Level 138 mmol/L (136-145)
[2020-12-21] MEDS: Lidocaine 1% (20 ml mdv) 20 ML Vial INFILT (04:43)
[2020-12-21] MEDS: Ketorolac 60 MG/2 ML Vial IM (04:44)
--- NOTE | 2020-12-21 05:11 | HP.PCM.HOS_ITS ---
HPI - General General Date of Admission: 12/21/20 Date of Service: 12/21/20 Chief Complaint: opiate withdrawal HPI Narrative JESSI PERALES, is a 40 F who presents seeking treatment for opiate withdrawal. Pt snorts heroin. Approximately 4 days ago she quit crystal meth and heroin, started having cold chills, then reverted to snorting heroin again, but has stayed off crystal meth. She noted that her legs and hands are swollen since then. Additionally, she developed an abscess in right axilla. It was opened up in ED and she received IV clindamycin. [facility] Medical History Alcohol abuse affecting Back problem Bilateral lower extremity edema Drug abuse Hearing problem Hepatitis C Pulmonary embolism Substance abuse Thrombosis Vision problem Home Medications NK 12/21/20 [History Last Taken Unknown] Allergy/AdvReac Type Severity Reaction Status Date / Time pseudoephedrine Allergy Severe Shortness Verified 12/21/20 02:58 [From Sudafed] of breath adopted Surgical History History of S/P removal of left ovary Social History Smoking Status: Current every day smoker tobacco type: cigarettes second hand exposure: Yes alcohol intake: former substance use type: former substance user, opiates, methamphetamine and other details: previous caffeine: Yes what type of physical activity do you participate in: walking frequency: 3-4 times per week marvin/scientology: Jew seatbelt use: sometimes do you feel safe at home: Yes ROS ROS Narrative All review of systems were negative except as mentioned above in the history of present illness and the other review of systems. Vital Signs Vital Signs Vital Signs: 12/21/20 02:52 12/21/20 02:57 12/21/20 04:21 Temperature 36.1 C L 36.1 C L 36.1 C L Temperature Source Temporal Temporal Temporal Pulse Rate 72 72 72 Respiratory Rate 16 16 16 Blood Pressure 127/83 H 127/83 H 127/83 H Blood Pressure Mean 97 97 97 Pulse Ox 99 99 99 Oxygen Delivery Method Room Air Room Air Room Air Weight Weight: 91 kg Body Mass Index (BMI) 31.4 Physical Exam Const alert General Appearance: cooperative HEENT normocephalic and head/scalp atraumatic Neck no lymphadenopathy and supple Resp normal respiratory effort, no retractions, no use of accessory muscles and clear to auscultation bilaterally Cardio regular rate, regular rhythm, S1 normal heart sound and S2 normal heart sound GI normal to inspection, nondistended, normoactive bowel sounds, soft to palpation, non-tender and non-distended Extremity Extremity Narrative: LE edema. posterior tender calves. Skin Skin Narrative: abscess in right axilla with surrounding erythema. TTP. faint bilateral macular erythema to bilateral LE. Neuro no focal motor deficits Sensorium / Orientation: awake and alert Speech: speech normal Psych Mood & Affect: anxious Results Lab / Micro Data Attestation: I reviewed the patient's lab results. Result Diagrams: 12/21/20 04:05 12/21/20 04:05 Labs: Laboratory Results - last 24 hr 12/21/20 03:43: Urine Color Yellow, Urine Clarity Clear, Urine pH 6.0, Ur Specific [place] 1.020, Urine Protein 15 H, Urine Glucose (UA) Normal, Urine Ketones Negative, Urine Occult Blood Negative, Urine Nitrite Negative, Urine Bilirubin Negative, Urine Urobilinogen 1 H, Ur Leukocyte Esterase Negative, Urine RBC 0-5 SEEN, Urine WBC 0 SEEN, Ur Squamous Epith Cells 0-5 SEEN, Urine Bacteria 1+, Urine Mucus 0 SEEN 12/21/20 03:43: Urine Opiates Screen NEGATIVE, Urine Methadone Screen NEGATIVE, Ur Barbiturates Screen NEGATIVE, Ur Phencyclidine Scrn NEGATIVE, Ur Amphetamines Screen NEGATIVE, U Methamphetamin-MDMA POSITIVE H, U Benzodiazepines Scrn NEGATIVE, Urine Cocaine Screen NEGATIVE, U Cannabinoids Screen NEGATIVE, Ur Drug Screen Comment 12/21/20 04:05: WBC 9.1, RBC 4.32, Hgb 11.7 L, Hct 36.9 L, MCV 85.4, MCH 27.1, MCHC 31.7 L, RDW Std Deviation 44.3 H, RDW Coeff of [place] 14.1, Plt Count 214, MPV 10.1, Immature Gran % (Auto) 0.200, Neut % (Auto) 65.0, Lymph % (Auto) 23.2, [place] % (Auto) 6.5, Eos % (Auto) 4.7, Baso % (Auto) 0.4, Absolute Neuts (auto) 5.9, Absolute Lymphs (auto) 2.12, Nucleated RBC % 0 12/21/20 04:05: Sodium 138, Potassium 3.8, Chloride 103, Carbon Dioxide 32.0, Anion Gap 3 L, BUN 16, Creatinine 0.80, Estim Creat Clear Calc 90.90, Est GFR (MDRD) Af Amer 103, Est GFR (MDRD) Non-Af 85, BUN/Creatinine Ratio 20.1 H, Glucose 96, Calcium 8.7, Total Bilirubin 0.20, AST 27, ALT 32, Alkaline Phosphatase 119 H, Total Protein 7.2, Albumin 3.1 L, Globulin 4.1, Albumin/Globulin Ratio 0.8 L 12/21/20 04:05: Ethyl Alcohol < 3.0 12/21/20 04:05: Serum , Qual NEGATIVE Assessment & Plan Assessment/Plan (1) Opiate withdrawal: (2) Abscess of right axilla: (3) Bilateral lower extremity edema: (4) Pulmonary embolism: QUALIFIERS: Pulmonary embolism type: unspecified Chronicity: chronic Acute cor pulmonale presence: without acute cor pulmonale Qualified Code(s): I27.82 - Chronic pulmonary embolism PLAN: 1. Acute opiate withdrawal * Last use was shortly before midnight on the fourth. * Patient was apprehensive about using Subutex. Told her that she had symptoms of opiate withdrawal with her chills which is why she went back on her opiates. I informed her that the Subutex is only help mitigate her symptoms so they can be more tolerable. She was reassured by that but she expresses t hat she does not want to be on long-term. Reassured her that not everyone who goes to opiate withdrawal is not a long-term and if she does not want them that she can discuss with her addiction physician. But she is okay with using it here. * Also have other medications to help her with her other somatic complaints with opiate withdrawal. * Patient informed that addiction liaison will be seeing her to facilitate a program for her upon discharge 2. Right axillary abscess * Likely unrelated to her drug use and patient snorts and does not inject (though has several months ago) and has never injected and axilla * Opened up in the ED * Received clindamycin in the ED. We will have the patient on tr imethoprim/sulfamethoxazole * Wound care 3. Bilateral lower extremity edema * Patient stated this started after quitting the crystal meth * Check duplex. Previous duplex has been negative for VTE 4. History of PE * Has seen oncology in the past and has recommended continuing anticoagulation. Patient stated that she quit anticoagulation shortly after being prescribed at because she was told that she would develop an aortic dissection and bleed out. I reassured her that that would not happen just with the blood thinners and of themselves. * I recommended that she go back on to the apixaban. * She has seen Dr. Briscoe, who felt that this was related with her history of IV drug abuse. * Will check duplex as above and would recommend she continuing to take apixaban and follow-up with oncology 5. Tobacco abuse: Nicotine patch Charges/Coding Visit Charges Inpatient E&M: 05982 Init Hosp L3
--- NOTE | 2020-12-21 05:52 | VDLE_ITS ---
Reason For Study: Pulmonary embolism RIGHT LEFT GSV is normal. GSV is normal. CFV is compressible, spontaneous, competent CFV is compressible, spontaneous, competent, and demonstrates pulsatile venous flow. and demonstrates pulsatile venous flow. FV is compressible, spontaneous, phasic, FV is compressible, spontaneous, phasic, competent and demonstrates normal competent and demonstrates normal augmentation. augmentation. POP V is compressible, spontaneous, phasic, POP V is compressible, spontaneous, phasic, competent and demonstrates normal competent and demonstrates normal augmentation. augmentation. T/P Trunk is compressible. T/P Trunk is compressible. PTV is compressible. PTV is compressible. RT PerV is compressible. LT PerV is compressible. Procedure Acute deep vein thrombosis is noted in the This is a venous duplex using B-mode, color left soleus vein. flow and spectral Doppler. Exam performed portable in ED. A preliminary report was called and/or faxed to [facility]. VL/Venous Duplex US - [place] Extrem Interpretation Summary There is no evidence of right lower extremity deep vein thrombosis. Acute deep venous thrombosis left soleus vein. Pulsatile venous flow noted bilateral common femoral vein suggesting proximal v enous hypertension or obstruction. Clinical correlation would be appropriate Patent and compressible bilateral great saphenous veins Ordering Physician: Warren Mike Referring Physician: Gregorio Mathews Performed By: Lola Martin RVT
--- NOTE | 2020-12-21 06:02 | PCS.PANDOC ---
PANDEMIC DOCUMENTATION INITIATED: Date: 10/01/2020 Time: 190
[2020-12-21] MEDS: APIXABAN 5 MG TABLET 10 MG PO ×2 (08:56→21:42)
[2020-12-21] MEDS: Smz/Tmp Ds Tablet 1 TABLET PO ×2 (08:56→17:09)
--- NOTE | 2020-12-21 10:42 | ADDICTION ---
This leader writer attempted to meet with PT. PT was asleep and did not rouse to verbal queuing. This leader writer will attempt to meet with PT at next visit on 12/22/20.
--- NOTE | 2020-12-21 11:29 | PCM.PN.HOSP ---
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 Patient's notes heroin. Denies IV needle use. Objective Data Objective Data Vital Signs: Vital Signs Temp Pulse Resp BP Pulse Ox 97.5 F L 88 16 112/63 100 12/21/20 08:53 12/21/20 08:53 12/21/20 08:53 12/21/20 08:53 12/21/20 08:53 Oxygen Delivery Method Room Air Weight: 199 lb 14.4 oz Body Mass Index (BMI) 31.3 Lab / Micro Data Result Diagrams: 12/21/20 04:05 12/21/20 04:05 Labs: Laboratory Results - last 24 hr 12/21/20 03:43: Urine Color Yellow, Urine Clarity Clear, Urine pH 6.0, Ur Specific [place] 1.020, Urine Protein 15 H, Urine Glucose (UA) Normal, Urine Ketones Negative, Urine Occult Blood Negative, Urine Nitrite Negative, Urine Bilirubin Negative, Urine Urobilinogen 1 H, Ur Leukocyte Esterase Negative, Urine RBC 0-5 SEEN, Urine WBC 0 SEEN, Ur Squamous Epith Cells 0-5 SEEN, Urine Bacteria 1+, Urine Mucus 0 SEEN 12/21/20 03:43: Urine Opiates Screen NEGATIVE, Urine Methadone Screen NEGATIVE, Ur Barbiturates Screen NEGATIVE, Ur Phencyclidine Scrn NEGATIVE, Ur Amphetamines Screen NEGATIVE, U Methamphetamin-MDMA POSITIVE H, U Benzodiazepines Scrn NEGATIVE, Urine Cocaine Screen NEGATIVE, U Cannabinoids Screen NEGATIVE, Ur Drug Screen Comment 12/21/20 04:05: WBC 9.1, RBC 4.32, Hgb 11.7 L, Hct 36.9 L, MCV 85.4, MCH 27.1, MCHC 31.7 L, RDW Std Deviation 44.3 H, RDW Coeff of [place] 14.1, Plt Count 214, MPV 10.1, Immature Gran % (Auto) 0.200, Neut % (Auto) 65.0, Lymph % (Auto) 23.2, [place] % (Auto) 6.5, Eos % (Auto) 4.7, Baso % (Auto) 0.4, Absolute Neuts (auto) 5.9, Absolute Lymphs (auto) 2.12, Nucleated RBC % 0 12/21/20 04:05: Sodium 138, Potassium 3.8, Chloride 103, Carbon Dioxide 32.0, Anion Gap 3 L, BUN 16, Creatinine 0.80, Estim Creat Clear Calc 90.90, Est GFR (MDRD) Af Amer 103, Est GFR (MDRD) Non-Af 85, BUN/Creatinine Ratio 20.1 H, Glucose 96, Calcium 8.7, Total Bilirubin 0.20, AST 27, ALT 32, Alkaline Phosphatase 119 H, Total Protein 7.2, Albumin 3.1 L, Globulin 4.1, Albumin/Globulin Ratio 0.8 L 12/21/20 04:05: Ethyl Alcohol < 3.0 12/21/20 04:05: Serum , Qual NEGATIVE Physical Exam Narrative History of pulmonary embolism and bilateral lower extremity swelling in July 2019 but she stopped taking Eliquis after 1 to 2 months. General: Alert, Oriented x3, Cooperative HEENT: Atraumatic, PERRLA, EOMI, Normocephalic Oral: No Gingival or Mucosal Lesions/ Ulcerations Neck: Supple, No JVD, Negative Carotid Bruits Lungs: Air entry diminished in bilateral lung bases. No crepitation/rhonchi Cardiovascular: Regular rate, Regular Rhythm, Normal S1, Normal S2, No murmurs Abdomen: Bowel Sounds Present, Soft, Non Tender, Non-Distended : No renal angle tenderness. No suprapubic tenderness. Extremities: No edema, Capillary Refill Less than 3 Seconds Skin: Right axillary abscess with surrounding redness and cellulitis status post drainage Musculoskeletal: Bilateral leg edema, right more than left. Neurological: Cranial nerves II-XII grossly intact, DTR 2+/4 and Symmetrical, Neuro grossly intact Psych/Mental Status: Flat affect Assessment & Plan Assessment/Plan (1) Opiate withdrawal: (2) Abscess of right axilla: (3) Bilateral lower extremity edema: (4) Pulmonary embolism: QUALIFIERS: Pulmonary embolism type: unspecified Chronicity: chronic Acute cor pulmonale presence: without acute cor pulmonale Qualified Code(s): I27.82 - Chronic pulmonary embolism PLAN: 1. Acute opiate withdrawal with history of chronic opioid use and dependence and tolerance: Patient is on buprenorphine along with other supportive medications. [facility] correctional case manager is to see the patient. Patient denies using needles last several years. 2. Right axillary abscess: Patient is not certain but denies needle use. Had incision and drainage and 1 dose clindamycin in ER. On Bactrim DS. Keflex added. e 3. Bilateral lower extremity edema Patient stated this started after quitting the crystal meth Check duplex. Previous duplex has been negative for VTE 4. History of PE Has seen oncology in the past and has recommended continuing anticoagulation. Patient quit taking Eliquis after 1 to 2 months. Patient is started on apixaban 10 mg twice daily. She has seen Dr. Briscoe, who felt that this was related with her history of IV drug abuse. 5. Tobacco abuse: Nicotine patch
[2020-12-21] MEDS: Cephalexin 500 MG Capsule PO ×2 (12:15→21:42)
[2020-12-21] MEDS: Acetaminophen 500 MG Tablet PO (17:14)
[2020-12-22 05:00] VITALS: BP 102/66; PULSE 62; RESP 16; TEMP 36.7; O2SAT 96
[2020-12-22] MEDS: Cephalexin 500 MG Capsule PO ×3 (05:01→20:15)
--- NOTE | 2020-12-22 05:16 | NURSING ---
Patient has slept the past 10 hours. Upon assessment denies any withdrawal symptoms. Vitals WNL, dsg to R axilla changed.
[2020-12-22 08:39] VITALS: BP 107/69; PULSE 69; RESP 16; TEMP 37.2; O2SAT 98
[2020-12-22] MEDS: APIXABAN 5 MG TABLET 10 MG PO ×2 (08:42→20:14)
[2020-12-22] MEDS: Smz/Tmp Ds Tablet 1 TABLET PO ×2 (08:42→16:44)
--- NOTE | 2020-12-22 11:43 | PN.HOSP_ITS ---
Subjective Subjective Patient bilateral lower extremity swelling is same as yesterday. Venous duplex report reviewed. Objective Data Objective Data Vital Signs: Vital Signs Temp Pulse Resp BP Pulse Ox 98.9 F 69 16 107/69 98 12/22/20 08:39 12/22/20 08:39 12/22/20 08:39 12/22/20 08:39 12/22/20 08:39 Oxygen Delivery Method Room Air Weight: 199 lb 14.4 oz Body Mass Index (BMI) 31.3 Lab / Micro Data Result Diagrams: 12/21/20 04:05 12/21/20 04:05 Radiography Diagnostic Testing: Radiology Impression Venous Doppler Study 12/21/20 05:52 Interpretation Summary There is no evidence of right lower extremity deep vein thrombosis. Acute deep venous thrombosis left soleus vein. Pulsatile venous flow noted bilateral common femoral vein suggesting proximal venous hypertension or obstruction. Clinical correlation would be appropriate Patent and compressible bilateral great saphenous veins ___ Ordering Physician: Warren Mike Referring Physician: Gregorio Mathews Performed By: Lola Martin RVT Physical Exam Narrative Seen and examined General: Alert, Oriented x3, Cooperative HEENT: Atraumatic, PERRLA, EOMI, Normocephalic Oral: No Gingival or Mucosal Lesions/ Ulcerations Neck: Supple, No JVD, Negative Carotid Bruits Lungs: Air entry diminished in bilateral lung bases. No crepitation/rhonchi Cardiovascular: Regular rate, Regular Rhythm, Normal S1, Normal S2, No murmurs Abdomen: Bowel Sounds Present, Soft, Non Tender, Non-Distended : No renal angle tenderness. No suprapubic tenderness. Extremities: No edema, Capillary Refill Less than 3 Seconds Skin: Right axillary abscess with surrounding redness and cellulitis status post drainage Musculoskeletal: Bilateral leg edema, right more than left. No change. No tenderness noticed. Neurological: Cranial nerves II-XII grossly intact, DTR 2+/4 and Symmetrical, Neuro grossly intact Psych/Mental Status: Flat affect Assessment & Plan Assessment/Plan (1) Opiate withdrawal: (2) Abscess of right axilla: (3) Bilateral lower extremity edema: (4) Pulmonary embolism: QUALIFIERS: Pulmonary embolism type: unspecified Chronicity: chronic Acute cor pulmonale presence: without acute cor pulmonale Qualified Code(s): I27.82 - Chronic pulmonary embolism PLAN: 1. Acute opiate withdrawal with history of chronic opioid use and dependence and tolerance: Patient is on buprenorphine along with other supportive medications. [facility] correctional casework specialist is to see the patient. Patient denies using needles last several years. 12/22: Opioid withdrawal symptoms are controlled. 2. Right axillary abscess: Patient is not certain but denies needle use. Had incision and drainage and 1 dose clindamycin in ER. On Bactrim DS. Keflex added. 3. Bilateral lower extremity edema: Venous duplex showed acute deep venous thrombosis left soleus vein. Pulsatile venous flow noted bilateral common femoral vein suggesting proximal venous hypertension orobstruction. Patent and compressible bilateral great saphenous veins. Continue apixaban. 4. History of PE: * Has seen oncology in the past and has recommended continuing anticoagulation. Patient quit taking Eliquis after 1 to 2 months. Patient is started on apixaban 10 mg twice daily. * She has seen Dr. Briscoe, who felt that this was related with her history of IV drug abuse. 5. Tobacco abuse: Nicotine patch Charges/Coding Visit Charges Inpatient E&M: 87211 Subs Hosp L2
[2020-12-22 13:54] VITALS: BP 104/70; PULSE 74; RESP 16; TEMP 36.9; O2SAT 96
[2020-12-22 16:41] VITALS: BP 109/62; PULSE 64; RESP 16; TEMP 36.7; O2SAT 96
[2020-12-22 20:03] VITALS: BP 110/64; PULSE 66; RESP 16; TEMP 36.6; O2SAT 100
[2020-12-23 03:23] VITALS: BP 105/60; PULSE 62; RESP 16; TEMP 36.7; O2SAT 96
[2020-12-23] MEDS: Cephalexin 500 MG Capsule PO ×2 (04:49→14:16)
[2020-12-23 08:24] VITALS: BP 95/51; PULSE 64; RESP 16; TEMP 36.6; O2SAT 98
[2020-12-23] MEDS: Smz/Tmp Ds Tablet 1 TABLET PO (08:27)
[2020-12-23] MEDS: APIXABAN 5 MG TABLET 10 MG PO (08:27)
--- NOTE | 2020-12-23 11:08 | PCM.DC ---
Discharge Instructions Diet Discharge Diet: No restrictions Activity Discharge Activity: May Not Drive Weight Bearing Status: Weight bearing as tolerated Dressing / Incision Call your doctor if you observe: Fever of 101 or Higher, Coldness, Increased Pain, Numbness or Tingling, Change in Color, Inability to urinate, Inability to have a bowel movement, Using more than 1 pad per hour, Shortness of breath, Dizziness, Fainting spells, Swelling in the ankles, Chest pain, Prolonged hiccupping, Increased palpitations (irregular heartbeat), Calf discomfort and Uncontrolled pain Follow Up Care Test Results: Test results from this visit will be discussed in further detail at your follow-up appointment, if applicable. Discharge Plan Admission Admit Date/Time: 12/21/20 05:08 Primary Reason for Your Visit: Acute opioid withdrawal syndrome Attending Provider: Wes Low Primary Care Provider: Gregorio Mathews Instructions Additional Instructions / Restrictions: Patient advised to stay until tomorrow morning but she is adamant to leave today because she has to work tomorrow. She has follow-up for the outpatient [facility] Discharge Orders/Prescriptions Prescriptions: New acetaminophen 500 mg Tablet 500 mg PO Q4H PRN PRN (Reason: Pain 1-10 or Temp > 100.4 F) Qty: 0 RF: 0 sulfamethoxazole-trimethoprim 800-160 mg Tablet 1 tab PO BIDCM Qty: 10 RF: 0 cephalexin 500 mg Capsule 500 mg PO Q8 Qty: 12 RF: 0 nicotine 21 mg/24 hr Patch 24 Hour 21 mg transdermal DAILY Qty: 30 RF: 0 Eliquis 5 mg tablet 5 mg PO BID Qty: 74 RF: 0 Referrals / Follow Up: Gregorio Mathews MD [Primary Care Provider] - Within 2 Weeks Disposition Disposition (needs filled in before D/C Order can be placed): Home, Self Care
--- NOTE | 2020-12-23 11:40 | DS.PCM_ITS ---
Providers Date of Admission: 12/21/20 Primary Care Physician: Dr. 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 Routine Comment: Reason For Visit: OPIATE WITHDRAWL Diagnosis Discharge Diagnosis (1) Opiate withdrawal: Status: Acute Code(s): F11.23 - Opioid dependence with withdrawal (2) Abscess of right axilla: Status: Acute Code(s): L02.411 - Cutaneous abscess of right axilla (3) Bilateral lower extremity edema: Status: Acute Code(s): R60.0 - Localized edema (4) Pulmonary embolism: Status: Acute Code(s): I26.99 - Other pulmonary embolism without acute cor pulmonale Qualifiers: Acute cor pulmonale presence: without acute cor pulmonale Chronicity: chronic Pulmonary embolism type: unspecified Qualified Code(s): I27.82 - Chronic pulmonary embolism Medications at Discharge Home Medications acetaminophen 500 mg PO Q4H PRN PRN #0 tab 12/23/20 apixaban [Eliquis] 5 mg PO BID #74 tab 12/23/20 cephalexin 500 mg PO Q8 #12 cap 12/23/20 nicotine 21 mg TRANSDERMAL DAILY #30 ea 12/23/20 sulfamethoxazole-trimethoprim 1 tab PO BIDCM #10 tab 12/23/20 Hospital Course Summary of Care Provided Hospital Course: Patient was admitted for medical stabilization of acute opioid withdrawal syndrome. Patient also found to have right axillary abscess although she denies needle use. 1. Acute opiate withdrawal with history of chronic opioid use and dependence and tolerance: Patient is on buprenorphine along with other supportive medications. 180 case management assistant is to see the patient. Patient denies using needles last several years. Patient was seen by 180 yesterday and today and agreed for discharge?she is to join work tomorrow. Continue follow-up as an outpatient. Opioid withdrawal symptoms are controlled. 2. Right axillary abscess: Had incision and drainage and 1 dose clindamycin in ER. On Bactrim DS. Keflex added. Patient given a prescription for Bactrim DS and Keflex advised to follow with PCP in 2 weeks. 3. Bilateral lower extremity edema: Venous duplex showed acute deep venous thrombosis left soleus vein. Pulsatile venous flow noted bilateral common femoral vein suggesting proximal venous hypertension Patent and compressible bilateral great saphenous veins. 4. History of PE: Has seen oncology in the past and has recommended continuing anticoagulation. Patient quit taking Eliquis after 1 to 2 months. Patient is started on apixaban 10 mg twice daily. Patient given a prescription for apixaban She has seen Dr. Briscoe, who felt that this was related with her history of IV drug abuse. 5. Tobacco abuse: Nicotine patch Discharge medication reconciliation done. Discharge follow-up instructions completed. Discharge process discussed with the patient and all questions were answered to patient's satisfaction. Total time spent, exact 35 minutes on discharge meds reconciliation, examinatio n, coordination of care with nurses and ancillary staff, review of imaging and blood test and discussion with the patient on follow-up instructions Physical Exam Narrative Seen and examined General: Alert, Oriented x3, Cooperative HEENT: Atraumatic, PERRLA, EOMI, Normocephalic Oral: No Gingival or Mucosal Lesions/ Ulcerations Neck: Supple, No JVD, Negative Carotid Bruits Lungs: Air entry diminished in bilateral lung bases. No crepitation/rhonchi Cardiovascular: Regular rate, Regular Rhythm, Normal S1, Normal S2, No murmurs Abdomen: Bowel Sounds Present, Soft, Non Tender, Non-Distended : No renal angle tenderness. No suprapubic tenderness. Extremities: No edema, Capillary Refill Less than 3 Seconds Skin: Right axillary abscess with surrounding redness and cellulitis status post drainage improved. Musculoskeletal: Bilateral leg edema, improving. No tenderness noticed. Neurological: Cranial nerves II-XII grossly intact, DTR 2+/4 and Symmetrical, Neuro grossly intact Psych/Mental Status: Flat affect Weight / BMI Weight Weight: 199 lb 14.4 oz Body Mass Index (BMI) 31.3 ABG / Lab / Microbiology Data Result Diagrams: 12/21/20 04:05 12/21/20 04:05 D/C Instructions Discharge Diet: No restrictions Weight Bearing Status: Weight bearing as tolerated Call your doctor if you observe: Fever of 101 or Higher, Coldness, Increased Pain, Numbness or Tingling, Change in Color, Inability to urinate, Inability to have a bowel movement, Using more than 1 pad per hour, Shortness of breath, Dizziness, Fainting spells, Swelling in the ankles, Chest pain, Prolonged hiccupping, Increased palpitations (irregular heartbeat), Calf discomfort and Uncontrolled pain Meaningful Use Info Meaningful Use Diagnoses (Choose all that apply): None applicable Discharge Plan Admission Admit Date/Time: 12/21/20 05:08 Primary Reason for Your Visit: Acute opioid withdrawal syndrome Attending Provider: Wes Low Primary Care Provider: Gregorio Mathews Instructions Additional Instructions / Restrictions: Patient advised to stay until tomorrow morning but she is adamant to leave today because she has to work tomorrow. She has follow-up for the outpatient [facility] Discharge Orders/Prescriptions Prescriptions: New acetaminophen 500 mg Tablet 500 mg PO Q4H PRN PRN (Reason: Pain 1-10 or Temp > 100.4 F) Qty: 0 RF: 0 sulfamethoxazole-trimethoprim 800-160 mg Tablet 1 tab PO BIDCM Qty: 10 RF: 0 cephalexin 500 mg Capsule 500 mg PO Q8 Qty: 12 RF: 0 nicotine 21 mg/24 hr Patch 24 Hour 21 mg transdermal DAILY Qty: 30 RF: 0 Eliquis 5 mg tablet 5 mg PO BID Qty: 74 RF: 0 Referrals / Follow Up: Gergorio Mathews MD [Primary Care Provider] - Within 2 Weeks Disposition Disposition (needs filled in before D/C Order can be placed): Home, Self Care Charges/Coding Visit Charges Inpatient E&M: 12037 Disch Hosp
--- NOTE | 2020-12-23 12:10 | ADDICTION ---
TW met with pt to complete ASAM, DUDIT, AUDIT, MAI, D/C plan, and MSE. 40 year old female admitted 12/21/20 for medical management. Currently using Methamphetamine daily and occassionally Opiates (Heroin/Fentanyl). Pt. reports she is starting new job tomorrow 12/24/20 and plans to engage in outpatient services at [facility]-she does not have a primary products inspectors, will need to schedule appt. Pt. has sober transportation, will d/c'd to home today.
[2020-12-23 14:15] VITALS: BP 110/69; PULSE 69; RESP 16; TEMP 37; O2SAT 100
--- NOTE | 2020-12-23 17:51 | NURSING ---
recieved phone call from pt stating was discharged on eliquis and was told by [facility] they would not be able to fill eliquis script until tomorrow, concerned about missing dose and pharmacy closes at 6pm. Dr. Low sent text of above information as well as phone number for [facility].
== END 2020-12-23 15:43 | disposition home or self-care (01) ==
LOC: ED 04:40 → MS3 05:35
PROVIDERS: Emergency Provider Emergency Medicine; PCP Internal Medicine; Visit Provider Internal Medicine
DX: F11.23 Opioid dependence with withdrawal (principal); L02.411 Cutaneous abscess of right axilla; I27.82 Chronic pulmonary embolism; F17.210 Nicotine dependence, cigarettes, uncomplicated; F15.90 Other stimulant use, unspecified, uncomplicated; R60.0 Localized edema; I82.462 Acute embolism and thrombosis of left calf muscular vein; Z86.19 Personal history of other infectious and parasitic diseases
CPT/HCPCS: 10060; 80053; 80307; 81001; 82077; 84703; 85025; 93970; 99284; 99406; H0012

== ENCOUNTER 2022-01-01 12:26 | Emergency (ER) | payer MEDICAID, SELFPAY ==
--- NOTE | 2022-01-01 12:29 | ED.RN ---
PT WAS BROUGHT IN BY EMS AND PT WAS UNCONSCIOUS. PT WAS ARGUMENTATIVE WITH EMS THROUGHOUT THE TRIP WHEN SHE WOULD WAKE UP. UPON ARRIVAL PT WAS UNRESPONSIVE SO OBTAINED NARCAN FROM [employer] AND GAVE IN. PT WOKE UP AND WAS VERY COMBATIVE AND THREATENING TO EVERYONE IN THE ROOM. PT WAS CONFUSED AND STATING SHE WAS TALKING TO THIS NURSE WHEN SHE NEVER WAS AWAKE IN MY PRESENCE. SHE ALSO STATED THAT HER CAR WAS STOLEN SOON SHE DID WAKE UP AND WAS UNABLE TO EXPLAIN WHAT THAT HAD TO DO WITH HER INABILITY TO STAY AWAKE. PT ALSO WAS LOOKING FOR HAIR TIES UNDER THE BED SHE STATED SHE DROPPED BUT NO HAIR TIES WERE PRESENT. 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 PT HAD ADMITTED TO USING DRUGS IN THE PAST TO EMS. PT DID STATES SHE COULD TAKE A PISS TEST AND THERE'S NOTHING IN IT. PT AMBULATED FROM ER WITH [employer]AD[employer]ATE AND WAS TEXTING ON HER PHONE.
--- NOTE | 2022-01-01 13:30 | ED.RN ---
patient used restroom, when patient returned to room, officer at bedside noted a white substance in her nose. when questioned about it patient initially denied but with further questioning by police patient admitted to snorting meth while in restroom. police searched patient and no further drugs were found. patient now resting in second triage room, monitor applied.
[2022-01-01 14:00] VITALS: BP 107/75; PULSE 83; RESP 16; TEMP 36.2; O2SAT 92; BMI 31.3
[2022-01-01] MEDS: Naloxone 2 MG/2 ML Syringe NASAL ×2 (14:00→15:00)
--- NOTE | 2022-01-01 14:50 | NURSING ---
Kee BOONE, myself, Jodi,CATALINA, Katarzyna, LEAD ADVISOR and Dr. Son at bedside to narcan patient. Patient disoriented with time and combative. Patient threatening staff, hitting, scratching and attempting to leave ED while intoxicated. Patient has been placed in locked restraints per Dr. Son. Patient states she would like her phone for a vice president supply chain to jonathon us all.
[2022-01-01 15:32] VITALS: BP 112/72; PULSE 85; RESP 17; O2SAT 98
--- NOTE | 2022-01-01 16:44 | EDS_ITS ---
HPI History of Present Illness Chief Complaint: Dizziness Informant: patient, EMS and police/records management analyst Narrative Narrative: 41-year-old female apparently found by the police and was concerned for an overdose EMS was called and they administered Narcan and she woke up and was combative. Patient was in our waiting room waiting for bed placement when she reportedly went into the bathroom and used again resulting in her becoming even more lethargic and now having respiratory rates of around 4. PFSH PFSH Medical History Abscess of right axilla Alcohol abuse affecting Back problem Bilateral lower extremity edema Drug abuse Hearing problem Hepatitis C Pulmonary embolism Smoker Substance abuse Thrombosis Vision problem Home Medications acetaminophen 500 mg tablet 500 mg PO Q4H PRN PRN Pain 1-10 or Temp > 100.4 F #0 tabs 12/23/20 [Rx Last Taken Unknown] apixaban 5 mg tablet (Eliquis) 5 mg PO BID #74 tabs 12/23/20 [Rx Last Taken Unknown] cephalexin 500 mg capsule 500 mg PO Q8 #12 caps 12/23/20 [Rx Last Taken Unknown] nicotine 21 mg/24 hr daily transdermal patch 21 mg transdermal DAILY #30 ea 12/23/20 [Rx Last Taken Unknown] sulfamethoxazole 800 mg-trimethoprim 160 mg tablet 1 tab PO BIDCM #10 tabs 12/23/20 [Rx Last Taken Unknown] Allergy/AdvReac Type Severity Reaction Status Date / Time pseudoephedrine Allergy Severe Shortness Verified 12/21/20 02:58 [From Sudafed] of breath Surgical History History of S/P removal of left ovary Social History Smoking Status: Current every day smoker tobacco type: cigarettes second hand exposure: Yes alcohol intake: former substance use type: former substance user, opiates, methamphetamine and other details: previous caffeine: Yes what type of physical activity do you participate in: walking frequency: 3-4 times per week marvin/anglican: Adventism seatbelt use: sometimes do you feel safe at home: Yes ROS ROS ED Review of Systems ROS Unobtainable: due to mental status EXAM Physical Exam Const Vital Signs: 01/01/22 14:00 01/01/22 15:32 Temperature 97.2 F L Temperature Source Temporal Pulse Rate 83 85 Respiratory Rate 16 17 Blood Pressure 107/75 112/72 Blood Pressure Mean 85 85 Pulse Ox 92 98 Oxygen Delivery Method Room Air Room Air Positive well nourished, well developed and obese General Appearance ED: well developed Nutritional Appearance: obese HEENT Reports normocephalic, head/scalp atraumatic and moist mucous membranes Eyes Eyes Narrative: Pupils are 2 mm bilaterally and sluggish Neck no lymphadenopathy, supple and no JVD Resp clear to auscultation bilaterally Resp Narrative: Patient has shallow respirations Cardio regular rate, regular rhythm and no murmurs GI normal to inspection, nondistended, normoactive bowel sounds and non-tender Palpation: soft Back/Spine no CVA tenderness and normal ROM Extremity normal to inspection General Extremety ED: Negative for edema General Extremity: Negative for edema Neuro Sensorium / Orientation: stuporous Skin no rashes or lesions noted and no wounds MDM MDM MDM Narrative Medical decision making narrative: We administered 2 mg of nasal Narcan. The patient woke up and was combative. At one point she began to fight the police and she was placed back in the bed in leather restraints. This eventually calm her down and she was able to be taken out of restraints. We observe her for almost 2 hours. At this point patient will be discharged instructions not to do drugs Discharge Plan Triage Chief Complaint: Dizziness ED Provider: Ricky Son Dx/Rx/DC Orders Clinical Impression: Substance abuse, Opiate overdose Instructions: ED Drug Abuse Prescriptions: No Action acetaminophen 500 mg Tablet 500 mg PO Q4H PRN PRN (Reason: Pain 1-10 or Temp > 100.4 F) Qty: 0 0RF sulfamethoxazole-trimethoprim 800-160 mg Tablet 1 tab PO BIDCM Qty: 10 0RF cephalexin 500 mg Capsule 500 mg PO Q8 Qty: 12 0RF nicotine 21 mg/24 hr Patch 24 Hour 21 mg transdermal DAILY Qty: 30 0RF Eliquis 5 mg tablet 5 mg PO BID Qty: 74 0RF Rx Instructions: 10 mg (2 TAB) twice daily for 5 more days and then start 5 mg (1 TAB) twice daily on 11/27/20 and then continue for 3 months Primary Care Provider: Gregorio Mathews Referrals: Gregorio Mathews MD [Primary Care Provider] - [facility] [Non-Staff] - As soon as possible Disposition Disposition: Home, Self Care
[2022-01-01 16:46] VITALS: BP 135/72; PULSE 69; RESP 15; O2SAT 98
== END 2022-01-01 16:47 | disposition home or self-care (01) ==
PROVIDERS: Emergency Provider Emergency Medicine; PCP Internal Medicine; Visit Provider Emergency Medicine
DX: T40.2X1A Poisoning by other opioids, accidental (unintentional), initial encounter (principal); R42 Dizziness and giddiness; F17.200 Nicotine dependence, unspecified, uncomplicated; E66.9 Obesity, unspecified
CPT/HCPCS: 99285; A4216